=== PATIENT | female | born 1975 ===

== ENCOUNTER 2018-01-29 18:33 | Emergency (ER) | payer BC ==
[2018-01-29] MEDS ORDERED: CLINDAMYCIN 150 MG CAP PO ONE (18:51)
--- NOTE | 2018-01-29 18:51 | Emergency Department Record ---
History of Present Illness - General Chief complaint: Toothache Stated complaint: ABCESSED TOOTH Time Seen by Provider: 01/29/18 18:49 Source: Patient Mode of Arrival: Ambulatory Limitations: No limitations - History of Present Illness Initial comments: 42 yo female presents to ED for evaluation of dental pain that began 2 weeks ago. Patient reports that she did see a dentist, however was told that she would need an oral surgeon for dental removal. Patient denies fevers, chills, nausea, or vomiting. Patient denies ear pain or dental injury. Patient reports that she has Ibuprofen 800 mg at home for her pain symptoms. MD complaint: Tooth pain Onset/Timin -: Week(s) Location: Tooth # Severity: Moderate Severity scale (1-10): 8 Quality: Aching Consistency: Constant Improves with: None Worsens with: None Context- Dental: History of dental caries - Related Data Home Medications Medication Instructions Recorded Confirmed Last Taken Ibuprofen [Motrin] 800 mg PO Q8H PRN 01/29/18 01/29/18 1 Day Ago ~01/28/18 Previous Rx's Medication Instructions Recorded Clindamycin HCl 300 mg PO QID #27 capsule 01/29/18 Naproxen [Naprosyn] 500 mg PO Q12H PRN #30 tab. 01/29/18 Allergies Allergy/AdvReac Type Severity Reaction Status Date / Time acetaminophen Allergy HYPERSENSIT Verified 01/29/18 18:45 [From Tylenol-Codeine] IVITY codeine Allergy HYPERSENSIT Verified 01/29/18 18:45 [From Tylenol-Codeine] IVITY Travel Screening - Travel/Exposure Within Last 30 Days Have you traveled within the last 30 days?: No - Travel/Exposure Within Last Year Have you traveled outside the [place] in the last year?: No - Additonal Travel Details Have you been exposed to anyone with a communicable illness?: No - Travel Symptoms Symptom Screening: None Review of Systems Constitutional: Denies: Chills, Fever, Malaise, Night sweats Eyes: Denies: Eye discharge, Eye pain ENT: Reports: Dental pain. Denies: Congestion, Ear pain, Epistaxis Respiratory: Denies: Cough, Dyspnea Cardiovascular: Denies: Chest pain, Dyspnea on exertion Endocrine: Denies: Fatigue, Heat or cold intolerance Gastrointestinal: Denies: Abdominal pain, Nausea, Vomiting Genitourinary: Denies: Incontinence, Retention Musculoskeletal: Denies: Arthralgia, Back pain Skin: Denies: Bruising, Change in color Neurological: Reports: Headache (resulting from her dental pain symptoms). Denies: Abnormal gait, Confusion, Tingling Psychiatric: Denies: Anxiety Hematological/Lymphatic: Denies: Anemia, Blood Clots Past Medical History - SOCIAL HISTORY Smoking Status: Light tobacco smoker (<10/day) Alcohol Use: Occasional Drug Use: Occasional Drug Use Detail:: Marijuana - RESPIRATORY Hx Respiratory Disorders: Yes Hx Bronchitis: Yes Comment:: seasonal allergies/bronchitis - CARDIOVASCULAR Hx Cardio Disorders: No - NEURO Hx Neuro Disorders: Yes Hx Headaches: Yes - GI Hx GI Disorders: Yes Hx Reflux: Yes Hx Irritable Bowel: Yes - Hx Genitourinary Disorders: No - ENDOCRINE Hx Diabetes: No Hx Thyroid Disease: No - MUSCULOSKELETAL Hx Arthritis: Yes - PSYCH Hx Anxiety: Yes Hx Depression: Yes - HEMATOLOGY/ONCOLOGY Hx Anemia: No Hx Blood Disorders: No Hx Bruising: No Family Medical History Any Significant Family History?: Yes Family Hx Comment (NOT TO BE USED IN PLACE OF ITEMS BELOW): fibro, fatty liver, thyroid, lupus Hx Cancer: Mother, Grandparents Physical Exam - General General Appearance: Alert, Oriented x3, Cooperative, Moderate distress Limitations: No limitations - Head Head exam: Atraumatic, Normocephalic, Normal inspection Head exam detail: negative: Abrasion, Contusion, Mosquera's sign, General tenderness, Hematoma, Laceration - Eye Eye exam: Normal appearance. negative: Conjunctival injection, Periorbital swelling, Periorbital tenderness, Scleral icterus - ENT Ear exam: negative: Auricular hematoma, Auricular trauma Nasal Exam: negative: Active bleeding, Discharge, Dried blood, Foreign body Mouth exam: negative: Drooling, Laceration, Muffled voice, Tongue elevation Teeth exam: Dental caries, Dental tenderness #. negative: Gingival enlargement Throat exam: negative: Tonsillar erythema, Tonsillomegaly, R peritonsillar mass , L peritonsillar mass Image of Mouth/Teeth: 1 - Dental pain, fracture. Numerous other dental caries and extractions. - Neck Neck exam: Normal inspection. negative: Meningismus, Tenderness - Respiratory Respiratory exam: Normal lung sounds bilaterally. negative: Respiratory distress, Rhonchi, Stridor, Wheezes - Cardiovascular Cardiovascular Exam: Regular rate, Normal rhythm, Normal heart sounds - GI/Abdominal GI/Abdominal exam: Soft. negative: Rebound, Rigid, Tenderness - Rectal Rectal exam: Deferred - exam: Deferred - Extremities Extremities exam: Normal inspection. negative: Pedal edema, Tenderness - Back Back exam: Denies: CVA tenderness (R), CVA tenderness (L) - Neurological Neurological exam: Alert, Normal gait, Oriented X3 - Psychiatric Psychiatric exam: Normal affect, Normal mood - Skin Skin exam: Normal color. negative: Abrasion Type of lesion: negative: abrasion Course Vital Signs 01/29/18 18:35 Temperature 98.3 F Pulse Rate 96 H Respiratory 18 Rate Blood Pressure 195/120 Pulse Ox 96 - Reevaluation(s) Reevaluation #1: 01/29/18 18:54 On examination, the patient has numerous dental caries that are present. There is no gingival abscess present on examination. Will initiate treatment with Clindamycin as directed with dental referral for further evaluation. Patient has Ibuprofen 800 mg at home for her pain symptoms as well. Disposition Disposition: Discharge Clinical Impression: Dental abscess Disposition: Home, Self-Care Condition: (2) Stable Instructions: Dental Abscess (ED) Additional Instructions: Return to ED if your symptoms worsen or if you have any concerns. Clindamycin as directed. Naprosyn as directed, do not take with your Ibuprofen. Follow-up with your dentist or a dentist from the referral list in 3-5 days as directed. Prescriptions: Clindamycin HCl 300 mg PO QID #27 capsule Naproxen [Naprosyn] 500 mg PO Q12H PRN #30 tab.dr PRN Reason: Pain - Mild To Moderate (1-7) Forms: Patient Portal Access Time of Disposition: 18:51 Quality - Quality Measures Quality Measures: N/A - Blood Pressure Screening Does Patient Have Any of the Following: No Blood Pressure Classification: Hypertensive Reading Systolic Measurement: 172 Diastolic Measurement: 120 Screening for High Blood Pressure: < First Hypertensive BP, F/U Documented > [ [id number]] First Hypertensive Follow-up Interventions: Referral to alternative/primary care provider.
== END 2018-01-29 19:18 | disposition home or self-care (01) ==
LOC: ER 18:33
DX: K04.7 Periapical abscess without sinus (principal); F17.210 Nicotine dependence, cigarettes, uncomplicated
CPT/HCPCS: 99282